=== PATIENT | male | born 1975 | race African-American/Black ===

== ENCOUNTER 2016-11-24 11:48 | Emergency (ER) | payer OTHER ==
--- NOTE | ~2016-11-24 | CR72 ---
[facility] A Service of [facility] & [facility] RADIOLOGY TEXT RESULTS PATIENT: VANNA RAMIREZ LOCATION: [facility] : 75 UNIT #: [id number] AGE: [address]: Annalee Key MD SEX: M ORDER DR: [id number] [facility] [address] [place], [place] [address] [id number] MR#: [id number] Acc #: [id number] NAME: VANNA RAMIREZ. : 1975 SEX: M STUDY DATE/TIME: 11/24/2016 11:06 UNIT: [facility] ROOM: STUDY DESCRIPTION: CR Chest Single View Portable Attending Physician: Annalee Key M.D. Ordering Physician: Annalee Key M.D. Primary Care Physician: Primary Care Physician No MEDICAL IMAGING REPORT This report is preliminary unless electronic signature is present EXAM Chest portable, 11/24/2016 at 11:06 hours HISTORY A 41-year-old man with [id number] day history of sore throat with cough and shortness of air. COMPARISON 09/24/2016 FINDINGS Portable upright chest demonstrates normal cardiac, mediastinal and hilar contours. Lungs are well expanded and clear. There is no effusion or pneumothorax. IMPRESSION No acute cardiopulmonary findings. No change from 09/24/2016. Dictated by... Erma Hendricks M.D. THIS IS AN ELECTRONICALLY VERIFIED REPORT Erma Hendricks M.D. at 11/25/2016 9:27 AM Pramod TD: 11/24/2016 11:54 JOB #: [id number] MEDICAL IMAGING REPORT Page 1 of 1 COPY
[~2016-11-24 11:48] MED LIST: ACETAMINOPHEN PO; ALBUTEROL17 GM; ALBUTEROL17 GM IH; ALBUTEROL17 GM INH; AMLODIPINE BESY10 MG PO; CATAPRES-TTS-20.2 MG EXT; CHLORTHALIDONE25 MG PO; CLONIDINE PO; FLEXERIL PO; FLEXERIL10 MG PO; HCTZ PO; HYDROCHLOROTHIA25 MG PO; IBUPROFEN PO; LISINOPRIL10 MG PO; LOPRESSOR PO; NORVASC PO; ORUDIS75 M1 PO; SULAR PO; VOLTAREN75 MG PO
== END 2016-11-24 12:57 | disposition home or self-care (01) ==
LOC: CED 11:48
DX: J02.0 Streptococcal pharyngitis (principal)
CPT/HCPCS: 71010; 87880; 94640; 99283

== ENCOUNTER 2016-12-01 22:50 | Emergency (ER) | payer OTHER ==
--- NOTE | ~2016-12-01 | CR63 ---
[facility] A Service of [facility] & [facility] RADIOLOGY TEXT RESULTS PATIENT: VANNA RAMIREZ LOCATION: [facility] : 75 UNIT #: [id number] AGE: [address]: Mary Lima MD SEX: M ORDER DR: [id number] [facility] [address] [place], [place] [address] [id number] E MR#: [id number] Acc #: [id number] NAME: VANNA RAMIREZ : 1975 SEX: M STUDY DATE/TIME: 12/01/2016 UNIT: [facility] ROOM: STUDY DESCRIPTION: CR Chest 2 View Attending Physician: Mary Lima M.D. Ordering Physician: Mary Lima M.D. Primary Care Physician: No Primary Care Physician MEDICAL IMAGING REPORT This report is preliminary unless electronic signature is present EXAM Chest x-ray, 12/01/16 AT 22:44 INDICATIONS Body aches, chills, shortness of air and cough that started yesterday. History of smoking and asthma. FINDINGS 2 views of the chest are compared with 11/24/2016. The cardiac and mediastinal contours are normal. The lungs are clear. No pneumothorax is seen. IMPRESSION No active disease. Dictated by... Da Gandhi Jr., M.D. THIS IS AN ELECTRONICALLY VERIFIED REPORT Da Gandhi Jr., M.D. at 12/02/2016 8:02 AM DAKOTA/barry TD: 12/01/2016 23:15 JOB #: [id number] MEDICAL IMAGING REPORT Page 1 of 1 COPY
[2016-12-01 23:15] LABS: BASOPHIL# 0.1 X10e3 (0-0.3); BASOPHIL% 0.9 % (0-2.5); EOSINOPHIL# 0.6 X10e3 (0-0.7); EOSINOPHIL% 5.7 % (0.0-7.0); HEMATOCRIT 43.5 % (38.0-50.0); HEMOGLOBIN 14.1 gm/dL (13.0-16.0); LYMPHOCYTE% 18.9 % (17.0-45.0); MEAN CELL VOLUME 86.1 FL (83-96); MEAN CORPUSCULAR HEMOGLOBIN 27.9 PG (28-34); MEAN CORPUSCULAR HGB CONC 32.4 g/dL (30-36); MEAN PLATELET VOLUME 8.5 FL (6.5-11.5); MONOCYTE# 1.2 X10e3 (0-1.0); MONOCYTE% 10.9 % (3.0-12.0); NEUTROPHIL# 6.8 X10e3 (1.5-7.1); NEUTROPHIL% 63.6 % (40-75); PLATELET COUNT 282 X10e3 (140-420); RED BLOOD COUNT 5.05 X10e (3.90-5.60); RED CELL DISTRIBUTION WIDTH 14.6 % (11.0-15.5); WHITE BLOOD COUNT 10.8 X10e3 (4.0-10.5)
[2016-12-01 23:17] LABS: DIFF IND NO
[2016-12-01 23:34] LABS: ALBUMIN SERUM 4.4 g/dL (3.5-5.0); BILIRUBIN, DIRECT 0.2 mg/dL (0.0-0.2); BILIRUBIN,INDIRECT 0.8 mg/dL (0.0-0.9); BUN/CREATININE RATIO 10.9; CALCIUM SERUM 8.9 mg/dL (8.4-10.2); CREATININE SERUM 1.1 mg/dL (0.6-1.4); GLOM FILT RATE Estimated 96.2 mL/min (>60); POTASSIUM 3.4 mmol/L (3.5-5.1); PROTEIN TOTAL SERUM 7.6 g/dL (6.0-8.3)
[2016-12-01 23:58] LABS: URINE SOURCE CLEAN CATCH
[2016-12-01 23:58] LABS: INFLUENZA A NEG (NEG); INFLUENZA B NEG (NEG)
[2016-12-02 00:09] LABS: URINE APPEARANCE CLEAR; URINE BILIRUBIN NEG (NEG); URINE BLOOD NEG (NEG); URINE COLOR YELLOW; URINE GLUCOSE NEG (NEG); URINE KETONE NEG (NEG); URINE LEUKOCYTE ESTERASE NEG (NEG); URINE NITRATE NEG (NEG); URINE PH 5.5 (5-8); URINE PROTEIN NEG (NEG); URINE SPECIFIC GRAVITY 1.017 (1.003-1.035); URINE UROBILINOGEN 0.2 MG/DL (NEG)
[2016-12-02 00:14] LABS: AMPHETAMINE NEG (NEG); BARBITURATES NEG (NEG); BENZODIAZEPINES NEG (NEG); COCAINE NEG (NEG); MARIJUANA NEG (NEG); OPIATES NEG (NEG); TRICYCLIC ANTIDEPRESSANTS NEG (NEG); U METHADONE NEG (NEG)
[2016-12-02 00:18] LABS: CULTURE INDICATED? NO
== END 2016-12-02 01:12 | disposition home or self-care (01) ==
LOC: CED 22:50
PROVIDERS: Student in an Organized Health Care Education/Training Program
DX: J20.9 Acute bronchitis, unspecified (principal); J11.1 Influenza due to unidentified influenza virus with other respiratory manifestations; J45.909 Unspecified asthma, uncomplicated; I10 Essential (primary) hypertension; F17.200 Nicotine dependence, unspecified, uncomplicated; Z79.899 Other long term (current) drug therapy; Z98.890 Other specified postprocedural states
CPT/HCPCS: 36415; 71020; 80048; 80076; 80307; 81003; 85025; 87804; 87880; 94640; 99284

== ENCOUNTER 2017-04-09 14:23 | Emergency (ER) | payer OTHER ==
[~2017-04-09] VITALS: Ht 160 cm; Wt 72.6 kg
--- NOTE | ~2017-04-09 | CR169 ---
[facility] A Service of [facility] & [facility] RADIOLOGY TEXT RESULTS PATIENT: VANNA RAMIREZ LOCATION: [facility] : 75 UNIT #: [id number] AGE: [address]: Alexandra Neal APRN SEX: M ORDER DR: [id number] [facility] [address] [place], [place] [address] [id number] E MR#: [id number] Acc #: [id number] NAME: VANNA RAMIREZ. : 1975 SEX: M STUDY DATE/TIME: 04/09/2017 15:54 UNIT: [facility] ROOM: STUDY DESCRIPTION: CR Knee 2 Views Lt Attending Physician: Alexandra Neal A.P.R.N. Ordering Physician: Ed Janes Rueda M.D. Primary Care Physician: No Primary Care Physician MEDICAL IMAGING REPORT This report is preliminary unless electronic signature is present EXAM Left knee, 04/12/2017. HISTORY 42-year-old male with left knee pain for 4 days. No specific injury. COMPARISON None FINDINGS Two views of the left knee demonstrate no acute fracture or dislocation. Joint spaces are within normal limits. No joint effusion. IMPRESSION Unremarkable left knee. Dictated by... Ajay Torre M.D. THIS IS AN ELECTRONICALLY VERIFIED REPORT Ajay Torre M.D. at 04/10/2017 8:07 AM KRISTINE/leidy TD: 04/10/2017 00:24 JOB #: [id number] MEDICAL IMAGING REPORT Page 1 of 1 COPY
== END 2017-04-09 16:55 | disposition home or self-care (01) ==
LOC: CED 14:23 → CFTX 14:23 → CED 16:07 → CFTX 16:55
DX: M25.562 Pain in left knee (principal); I10 Essential (primary) hypertension; J45.909 Unspecified asthma, uncomplicated
CPT/HCPCS: 29505; 73560; 99283